=== PATIENT | female | born 1960 | race Caucasian/White ===

== ENCOUNTER 2019-08-17 15:44 | Emergency (ER) | payer MEDICARE, MEDICAID ==
[~2019-08-17] VITALS: Ht 170.2 cm; Wt 109.8 kg
[~2019-08-17 15:44] MED LIST: ATOR10TA87 PO; BRIV50TA PO; COR3.125T PO; ESOM40CA PO; FENO48TA15 PO; HYDR-4353 PO; HYDR-4383 PO; LACO100T2 PO; LAMO100T2 PO; LEVE750T PO; LOSA25TA96 PO; NITR0.4T51 SL; TIZA4CAP6 PO; TOP100T PO
[2019-08-17 15:47] VITALS: BP 140/80
[2019-08-17 16:47] LABS: BASOPHILS # (AUTO) 0.1 X10'3 (0-0.2); BASOPHILS % (AUTO) 0.8 % (0-1); EOSINOPHILS # (AUTO) 0.2 X10'3 (0-0.9); EOSINOPHILS % (AUTO) 2.5 % (0-6); HEMATOCRIT 41.4 % (35.0-45.0); HEMOGLOBIN 14.2 g/dl (12.0-16.0); LYMPHOCYTES # (AUTO) 2.6 X10'3 (1.1-4.8); LYMPHOCYTES % (AUTO) 35.5 % (21-51); MEAN CORPUSCULAR HGB CONC 34.3 g/dL (33.0-36.5); MEAN CORPUSCULAR VOLUME 90.1 FL (78-98); MEAN PLATELET VOLUME 7.3 FL (7.4-10.4); MONOCYTES # (AUTO) 0.7 X10'3 (0-0.9); MONOCYTES % (AUTO) 8.8 % (2-12); NEUTROPHILS # (AUTO) 3.9 X10'3 (1.8-7.7); NEUTROPHILS % (AUTO) 52.4 % (42-75); PLATELET COUNT 236 X10'3 (140-440); RED BLOOD COUNT 4.59 X10'6 (4.20-5.60); RED CELL DISTRIBUTION WIDTH 12.7 % (11.5-14.5); WHITE BLOOD COUNT 7.4 X10'3 (4.5-11.0)
[2019-08-17 17:01] LABS: ALANINE AMINOTRANSFERASE 55 U/L (12-78); ALBUMIN 3.6 G/DL (3.4-5.0); ALBUMIN/GLOBULIN RATIO 0.9 (1.1-1.5); ALKALINE PHOSPHATASE 142 IU/L (46-116); ANION GAP 6 (8-16); ASPARTATE AMINO TRANSFERASE 43 U/L (10-37); BILIRUBIN,TOTAL 0.4 MG/DL (0.1-1.0); BLOOD UREA NITROGEN 16 MG/DL (7-18); CALCIUM 9.2 MG/DL (8.5-10.1); CHLORIDE 109 MMOL/L (99-107); CREATININE 1.07 MG/DL (0.40-0.90); GLUCOSE 123 MG/DL (70-104); SODIUM 141 MMOL/L (135-145); TOTAL CARBON DIOXIDE 26.3 MMOL/L (24-32); TOTAL PROTEIN 7.8 G/DL (6.4-8.2); eGFR 53 ML/MIN
[2019-08-17] MEDS ORDERED: iohexol 300mg/ml 100ml inj. ONE (17:23)
[2019-08-17] MEDS ORDERED: dexamethasone sod phosphate 10mg/ml inj PO STA (18:50)
== END 2019-08-17 19:03 | disposition home or self-care (01) ==
LOC: ER 15:44
DX: R13.10 Dysphagia, unspecified (principal); R47.02 Dysphasia; R06.02 Shortness of breath; G43.909 Migraine, unspecified, not intractable, without status migrainosus; E78.00 Pure hypercholesterolemia, unspecified; Z90.710 Acquired absence of both cervix and uterus; Z98.890 Other specified postprocedural states; Z86.69 Personal history of other diseases of the nervous system and sense organs; Z88.5 Allergy status to narcotic agent; Z88.8 Allergy status to other drugs, medicaments and biological substances; Z79.899 Other long term (current) drug therapy
CPT/HCPCS: 36415; 70491; 80053; 85025; 99284; J1100; Q9967

== ENCOUNTER 2020-05-17 11:06 | Emergency (ER) | payer MEDICARE, MEDICAID ==
[~2020-05-17] VITALS: Ht 170.2 cm; Wt 110.0 kg
[~2020-05-17 11:06] MED LIST changes: +ANAS1TAB24 PO; -BRIV50TA PO; -HYDR-4353 PO; -HYDR-4383 PO; +ICOS1CAP PO; -TIZA4CAP6 PO
[2020-05-17] MEDS ORDERED: naloxone 0.4 mg/ml inj IV ONE (11:45)
[2020-05-17 11:50] LABS: BASOPHILS # (AUTO) 0.1 X10'3 (0-0.2); BASOPHILS % (AUTO) 0.4 % (0-1); EOSINOPHILS # (AUTO) 0.2 X10'3 (0-0.9); EOSINOPHILS % (AUTO) 1.3 % (0-6); HEMATOCRIT 35.6 % (35.0-45.0); HEMOGLOBIN 11.8 g/dl (12.0-16.0); LYMPHOCYTES # (AUTO) 2.1 X10'3 (1.1-4.8); LYMPHOCYTES % (AUTO) 17.7 % (21-51); MEAN CORPUSCULAR HEMOGLOBIN 30.7 PG (27.0-31.0); MEAN CORPUSCULAR HGB CONC 33.2 g/dL (33.0-36.5); MEAN CORPUSCULAR VOLUME 92.6 FL (78-98); MONOCYTES # (AUTO) 1.1 X10'3 (0-0.9); MONOCYTES % (AUTO) 9.7 % (2-12); NEUTROPHILS # (AUTO) 8.2 X10'3 (1.8-7.7); NEUTROPHILS % (AUTO) 70.9 % (42-75); PLATELET COUNT 171 X10'3 (140-440); RED BLOOD COUNT 3.84 X10'6 (4.20-5.60); RED CELL DISTRIBUTION WIDTH 12.6 % (11.5-14.5); WHITE BLOOD COUNT 11.6 X10'3 (4.5-11.0)
[2020-05-17] MEDS ORDERED: ondansetron/PF 4mg/2ml inj IV ONE (11:50)
[2020-05-17] MEDS ORDERED: normal saline 1000ml 1,000 ML IV ONE (11:50)
[2020-05-17 12:00] LABS: ALANINE AMINOTRANSFERASE 39 U/L (12-78); ALBUMIN 2.9 G/DL (3.4-5.0); ALBUMIN/GLOBULIN RATIO 0.6 (1.1-1.5); ALKALINE PHOSPHATASE 89 IU/L (46-116); ANION GAP 10 (8-16); ASPARTATE AMINO TRANSFERASE 31 U/L (10-37); BILIRUBIN,TOTAL 0.9 MG/DL (0.1-1.0); BLOOD UREA NITROGEN 28 MG/DL (7-18); BUN/CREATININE RATIO 16.6 (6.6-38.0); CALCIUM 8.6 MG/DL (8.5-10.1); CHLORIDE 103 MMOL/L (99-107); CREATININE 1.69 MG/DL (0.40-0.90); GLUCOSE 194 MG/DL (70-104); POTASSIUM 3.8 MMOL/L (3.5-5.1); SODIUM 134 MMOL/L (135-145); TOTAL PROTEIN 7.5 G/DL (6.4-8.2); eGFR 31 ML/MIN
[2020-05-17 12:13] LABS: CLARITY,URINE CLOUDY (Clear); COLOR,URINE ORANGE (Yellow)
[2020-05-17 12:15] LABS: UA COLLECTION TYPE STRAIGHT CATH
[2020-05-17 12:18] LABS: URINE AMPHETAMINE SCREEN NEGATIVE (Neg); URINE BARBITUATE SCREEN NEGATIVE (Neg); URINE BENZODIAZEPINES SCREEN NEGATIVE (Neg); URINE CANNABINOID SCREEN NEGATIVE (Neg); URINE COCAINE SCREEN NEGATIVE (Neg); URINE METHADONE SCREEN NEGATIVE (Neg); URINE OPIATE SCREEN NEGATIVE (Neg); URINE PHENCYCLIDINE SCREEN NEGATIVE (Neg)
[2020-05-17 12:21] LABS: COARSE GRANULAR CAST 0-3 /LPF (NEGATIVE); HYALINE CASTS 0-3 /LPF (NEGATIVE); MUCUS STRANDS MODERATE /LPF (Neg); SQUAMOUS EPITHELIAL CELL,UR MODERATE /LPF (FEW); TRANSITIONAL EPI CELLS,URINE FEW /HPF
[2020-05-17 12:23] LABS: BACTERIA,URINE FEW /HPF (Neg)
[2020-05-17 15:40] VITALS: BP 115/58
--- NOTE | 2020-05-17 16:07 | NUR ---
Pt's son contacted, Sanjiv via pt's cell number ([phone]). He will try calling his sister Miladis, who was already called by this RN with no answer, and work out transportation. Once done, he will call ed with details. Primary rn Jill informed.
== END 2020-05-17 17:10 | disposition home or self-care (01) ==
LOC: ER 11:06
DX: R53.83 Other fatigue (principal); R41.82 Altered mental status, unspecified; R42 Dizziness and giddiness; R04.0 Epistaxis; G43.909 Migraine, unspecified, not intractable, without status migrainosus; E78.00 Pure hypercholesterolemia, unspecified; J45.909 Unspecified asthma, uncomplicated; K27.9 Peptic ulcer, site unspecified, unspecified as acute or chronic, without hemorrhage or perforation; I49.9 Cardiac arrhythmia, unspecified; Z88.6 Allergy status to analgesic agent; Z88.5 Allergy status to narcotic agent; Z88.8 Allergy status to other drugs, medicaments and biological substances; Z79.899 Other long term (current) drug therapy; Z98.890 Other specified postprocedural states
CPT/HCPCS: 36415; 70450; 71045; 71250; 72125; 80053; 80305; 81001; 82140; 85025; 85610; 96374; 96375; 99285; J2310; J2405; J7030

== ENCOUNTER 2021-01-03 09:44 | Emergency (ER) | payer MEDICARE, MEDICAID ==
[~2021-01-03] VITALS: Ht 162.6 cm; Wt 105.5 kg
[2021-01-03 10:20] VITALS: BP 120/70
--- NOTE | 2021-01-03 11:16 | NUR ---
ER REG STATES THEY SAW PATIENT LEAVE WITH VISITOR IN CAR.
--- NOTE | 2021-01-03 16:29 | NUR ---
Patient not in lobby for the 4th time, Dr. Gleason aware of LWOBS
--- NOTE | 2021-01-03 16:33 | NUR ---
attempted to call patient with no answer
--- NOTE | 2021-01-03 17:22 | NUR ---
Patient called back regarding LWOBS, Patient stated, "I went home ate something, took my meds, and fell asleep." Patient stated, "my daughter and I didn't feel like it must have been very important if I went to the lobby." I explained to her that it doesn't mean we didn't feel as though she didn't need to be seen. we just didn't have a ER room for her to go to at the time. Patient stated that she was feeling better. And she is aware that if anything changes she can return.
== END 2021-01-03 16:33 | disposition left against medical advice (07) ==
LOC: ER 09:45
DX: T78.40XA Allergy, unspecified, initial encounter (principal); Z53.21 Procedure and treatment not carried out due to patient leaving prior to being seen by health care provider; Y92.89 Other specified places as the place of occurrence of the external cause

== ENCOUNTER 2021-06-01 15:42 | Emergency (ER) | payer MEDICARE, MEDICAID ==
[~2021-06-01] VITALS: Ht 162.6 cm; Wt 102.0 kg
[2021-06-01] MEDS ORDERED: acetaminophen 325mg tablet PO ONE (16:00)
[2021-06-01] MEDS ORDERED: HYDROcodone/acetaminophen 5mg/325mg tablet PO ONE (16:25)
[2021-06-01] MEDS ORDERED: HYDR-3965 PO (16:28)
[2021-06-01 17:14] VITALS: BP 115/73
== END 2021-06-01 16:36 | disposition home or self-care (01) ==
LOC: ER 15:43
DX: S22.32XA Fracture of one rib, left side, initial encounter for closed fracture (principal); G40.909 Epilepsy, unspecified, not intractable, without status epilepticus; G43.909 Migraine, unspecified, not intractable, without status migrainosus; E78.00 Pure hypercholesterolemia, unspecified; J45.909 Unspecified asthma, uncomplicated; Z85.3 Personal history of malignant neoplasm of breast; Z90.710 Acquired absence of both cervix and uterus; Z79.82 Long term (current) use of aspirin; Z79.899 Other long term (current) drug therapy; Z88.8 Allergy status to other drugs, medicaments and biological substances; Z88.6 Allergy status to analgesic agent; X58.XXXA Exposure to other specified factors, initial encounter; Y93.89 Activity, other specified; Y92.89 Other specified places as the place of occurrence of the external cause; Y99.8 Other external cause status
CPT/HCPCS: 71045; 99283

== ENCOUNTER 2021-12-06 18:27 | Emergency (ER) | payer BC, MEDICAID ==
[~2021-12-06] VITALS: Ht 162.6 cm; Wt 102.8 kg
[2021-12-06] MEDS ORDERED: acetaminophen 325mg tablet PO ONE (20:00)
[2021-12-06] MEDS ORDERED: normal saline 500ml IV soln 500 ML IV SCH (20:00)
[2021-12-06] MEDS ORDERED: levetiracetam inj 500 MG in normal saline 100ml IV soln 95 ML IV SCH (20:00)
[2021-12-06] MEDS ORDERED: LEVE10002 PO (20:52)
[2021-12-06] MEDS ORDERED: levetiracetam inj 500 MG in normal saline 100ml IV soln 100 ML IV SCH (21:19)
[2021-12-06 21:37] VITALS: BP 129/71
== END 2021-12-06 21:42 | disposition home or self-care (01) ==
LOC: EDBD 18:28 → MERGE 18:28 → ER 18:28
DX: R56.9 Unspecified convulsions (principal); Z86.69 Personal history of other diseases of the nervous system and sense organs; Z88.5 Allergy status to narcotic agent; Z88.8 Allergy status to other drugs, medicaments and biological substances; Z79.899 Other long term (current) drug therapy
CPT/HCPCS: 71045; 93005; 96365; 99284; J1953; J3490; J7040

== ENCOUNTER 2022-04-21 15:07 | Emergency (ER) | payer BC, MEDICAID ==
[~2022-04-21] VITALS: Ht 162.6 cm; Wt 100.0 kg
[~2022-04-21 15:07] MED LIST changes: +LEVE10002 PO
[2022-04-21 16:05] LABS: BASOPHILS % (AUTO) 0.4 % (0-1); EOSINOPHILS # (AUTO) 0.2 X10'3 (0-0.9); EOSINOPHILS % (AUTO) 2.1 % (0-6); HEMATOCRIT 41.8 % (35.0-45.0); LYMPHOCYTES % (AUTO) 34.1 % (21-51); MEAN CORPUSCULAR HEMOGLOBIN 30.3 PG (27.0-31.0); MEAN CORPUSCULAR HGB CONC 33.6 g/dL (33.0-36.5); MEAN CORPUSCULAR VOLUME 90.2 FL (78-98); MEAN PLATELET VOLUME 7.9 FL (7.4-10.4); MONOCYTES # (AUTO) 0.9 X10'3 (0-0.9); MONOCYTES % (AUTO) 10.2 % (2-12); NEUTROPHILS # (AUTO) 4.8 X10'3 (1.8-7.7); NEUTROPHILS % (AUTO) 53.2 % (42-75); PLATELET COUNT 187 X10'3 (140-440); RED BLOOD COUNT 4.63 X10'6 (4.20-5.60)
[2022-04-21 16:20] LABS: ALANINE AMINOTRANSFERASE 41 U/L (12-78); ALBUMIN 3.2 G/DL (3.4-5.0); ALBUMIN/GLOBULIN RATIO 0.8 (1.1-1.5); ALKALINE PHOSPHATASE 80 IU/L (46-116); ASPARTATE AMINO TRANSFERASE 33 U/L (10-37); BILIRUBIN,TOTAL 0.5 MG/DL (0.1-1.0); BLOOD UREA NITROGEN 17 MG/DL (7-18); BUN/CREATININE RATIO 13.6 (6.6-38.0); CALCIUM 9.3 MG/DL (8.5-10.1); CHLORIDE 109 MMOL/L (99-107); CREATININE 1.25 MG/DL (0.40-0.90); GLUCOSE 96 MG/DL (70-104); MAGNESIUM 1.9 MG/DL (1.5-2.4); TOTAL CARBON DIOXIDE 25.3 MMOL/L (24-32); TOTAL PROTEIN 7.2 G/DL (6.4-8.2); eGFR 44 ML/MIN
[2022-04-21 16:31] LABS: ANION GAP 6 (8-16); POTASSIUM 3.8 MMOL/L (3.5-5.1); SODIUM 140 MMOL/L (135-145)
[2022-04-21 19:41] VITALS: BP 105/63
== END 2022-04-21 19:57 | disposition home or self-care (01) ==
LOC: ER 15:08
DX: G40.909 Epilepsy, unspecified, not intractable, without status epilepticus (principal); G43.909 Migraine, unspecified, not intractable, without status migrainosus; E78.00 Pure hypercholesterolemia, unspecified; I10 Essential (primary) hypertension; J45.909 Unspecified asthma, uncomplicated; G89.29 Other chronic pain; Z86.69 Personal history of other diseases of the nervous system and sense organs; Z87.11 Personal history of peptic ulcer disease; Z85.3 Personal history of malignant neoplasm of breast; Z90.710 Acquired absence of both cervix and uterus; Z98.890 Other specified postprocedural states; Z88.5 Allergy status to narcotic agent; Z88.8 Allergy status to other drugs, medicaments and biological substances; Z79.899 Other long term (current) drug therapy
CPT/HCPCS: 36415; 71045; 80053; 82948; 83735; 85025; 93005; 99285

== ENCOUNTER 2022-11-04 23:40 | Emergency (ER) | payer BC, MEDICAID ==
[~2022-11-04] VITALS: Ht 162.6 cm; Wt 100.9 kg
[2022-11-04] MEDS ORDERED: ondansetron/PF 4mg/2ml inj IV ONE (23:50)
[2022-11-04] MEDS ORDERED: acetaminophen 1,000mg/100ml IV 100 ML IV ONE (23:50)
[2022-11-04] MEDS ORDERED: normal saline 1000ML IV soln IVB ONE (23:50)
[2022-11-05] MEDS ORDERED: SEMA0.25 SQ (00:17)
[2022-11-05 00:40] LABS: ALANINE AMINOTRANSFERASE 41 U/L (12-78); ALBUMIN 3.3 G/DL (3.4-5.0); ALBUMIN/GLOBULIN RATIO 0.8 (1.1-1.5); ALKALINE PHOSPHATASE 87 IU/L (46-116); ANION GAP 9 (8-16); ASPARTATE AMINO TRANSFERASE 28 U/L (10-37); BILIRUBIN,TOTAL 0.4 MG/DL (0.1-1.0); BLOOD UREA NITROGEN 27 MG/DL (7-18); BUN/CREATININE RATIO 21.8 (10.0-20.0); CALCIUM 8.9 MG/DL (8.5-10.1); CHLORIDE 106 MMOL/L (99-107); CREATININE 1.24 MG/DL (0.40-0.90); GLUCOSE 151 MG/DL (70-104); LIPASE 462 U/L (73-393); POTASSIUM 3.9 MMOL/L (3.5-5.1); SODIUM 139 MMOL/L (135-145); TOTAL CARBON DIOXIDE 23.6 MMOL/L (24-32); TOTAL PROTEIN 7.6 G/DL (6.4-8.2); eGFR 44 ML/MIN
[2022-11-05] MEDS ORDERED: D3 PO (01:21)
[2022-11-05] MEDS ORDERED: OSC500T PO (01:21)
[2022-11-05] MEDS ORDERED: DENO60DI SUBCUT (01:21)
[2022-11-05] MEDS ORDERED: OMEG-5 PO (01:21)
[2022-11-05] MEDS ORDERED: LANTUS SQ (01:21)
[2022-11-05 01:27] VITALS: BP 119/65
[2022-11-05 01:27] LABS: BASOPHILS % (AUTO) 0.5 % (0-1); EOSINOPHILS # (AUTO) 0.3 X10'3 (0-0.9); EOSINOPHILS % (AUTO) 3.2 % (0-6); HEMATOCRIT 42.4 % (35.0-45.0); HEMOGLOBIN 14.4 g/dl (12.0-16.0); LYMPHOCYTES # (AUTO) 3.4 X10'3 (1.1-4.8); LYMPHOCYTES % (AUTO) 40.2 % (21-51); MEAN CORPUSCULAR HEMOGLOBIN 30.5 PG (27.0-31.0); MEAN CORPUSCULAR VOLUME 89.6 FL (78-98); MEAN PLATELET VOLUME 9.3 FL (7.4-10.4); MONOCYTES # (AUTO) 0.6 X10'3 (0-0.9); MONOCYTES % (AUTO) 7.2 % (2-12); NEUTROPHILS # (AUTO) 4.2 X10'3 (1.8-7.7); NEUTROPHILS % (AUTO) 48.9 % (42-75); PLATELET COUNT 208 X10'3 (140-440); RED BLOOD COUNT 4.74 X10'6 (4.20-5.60); RED CELL DISTRIBUTION WIDTH 13.5 % (11.5-14.5); WHITE BLOOD COUNT 8.5 X10'3 (4.5-11.0)
== END 2022-11-05 02:12 | disposition home or self-care (01) ==
LOC: ER 23:41
DX: R10.84 Generalized abdominal pain (principal); G43.909 Migraine, unspecified, not intractable, without status migrainosus; E78.00 Pure hypercholesterolemia, unspecified; I10 Essential (primary) hypertension; J45.909 Unspecified asthma, uncomplicated; G89.29 Other chronic pain; Z90.710 Acquired absence of both cervix and uterus; Z98.890 Other specified postprocedural states; Z88.6 Allergy status to analgesic agent; Z88.5 Allergy status to narcotic agent; Z88.8 Allergy status to other drugs, medicaments and biological substances; Z79.4 Long term (current) use of insulin; Z79.899 Other long term (current) drug therapy
CPT/HCPCS: 36415; 70450; 80053; 83690; 84484; 85025; 93005; 96374; 96375; 99285; J0131; J2405; J7030

== ENCOUNTER 2023-02-17 21:46 | Emergency (ER) | payer BC, MEDICAID ==
[~2023-02-17] VITALS: Ht 162.6 cm; Wt 100.9 kg
[~2023-02-17 21:46] MED LIST changes: -ANAS1TAB24 PO; +D3 PO; +DENO60DI SUBCUT; -LACO100T2 PO; -LAMO100T2 PO; +LANTUS SQ; -LEVE10002 PO; -LEVE750T PO; +OMEG-5 PO; +OSC500T PO; +SEMA0.25 SQ
[2023-02-17 22:58] LABS: MEAN CORPUSCULAR VOLUME 88.3 FL (78-98)
[2023-02-17 22:59] LABS: BASOPHILS # (AUTO) 0.1 X10'3 (0-0.2); BASOPHILS % (AUTO) 0.5 % (0-1); EOSINOPHILS % (AUTO) 0.3 % (0-6); HEMATOCRIT 39.7 % (35.0-45.0); HEMOGLOBIN 13.6 g/dl (12.0-16.0); MEAN CORPUSCULAR HEMOGLOBIN 30.3 PG (27.0-31.0); MEAN CORPUSCULAR HGB CONC 34.3 g/dL (33.0-36.5); MEAN PLATELET VOLUME 7.9 FL (7.4-10.4); MONOCYTES # (AUTO) 1.1 X10'3 (0-0.9); MONOCYTES % (AUTO) 7.3 % (2-12); NEUTROPHILS # (AUTO) 10.7 X10'3 (1.8-7.7); NEUTROPHILS % (AUTO) 71.9 % (42-75); PLATELET COUNT 195 X10'3 (140-440); RED CELL DISTRIBUTION WIDTH 12.9 % (11.5-14.5); WHITE BLOOD COUNT 14.9 X10'3 (4.5-11.0)
[2023-02-17 23:07] LABS: ALANINE AMINOTRANSFERASE 39 U/L (12-78); ALBUMIN 3.1 G/DL (3.4-5.0); ALBUMIN/GLOBULIN RATIO 0.8 (1.1-1.5); ALKALINE PHOSPHATASE 72 IU/L (46-116); ANION GAP 11 (8-16); ASPARTATE AMINO TRANSFERASE 31 U/L (10-37); BILIRUBIN,TOTAL 0.8 MG/DL (0.1-1.0); BLOOD UREA NITROGEN 21 MG/DL (7-18); BUN/CREATININE RATIO 17.9 (10.0-20.0); CALCIUM 8.6 MG/DL (8.5-10.1); CHLORIDE 106 MMOL/L (99-107); CREATININE 1.17 MG/DL (0.40-0.90); GLUCOSE 108 MG/DL (70-104); POTASSIUM 3.7 MMOL/L (3.5-5.1); SODIUM 139 MMOL/L (135-145); TOTAL CARBON DIOXIDE 22.2 MMOL/L (24-32); TOTAL PROTEIN 6.9 G/DL (6.4-8.2); eGFR 47 ML/MIN
[2023-02-18 00:43] VITALS: TEMP 99
[2023-02-18] MEDS ORDERED: DOCU-171 PO (02:13)
[2023-02-18] MEDS ORDERED: bisacodyl 5mg tablet.DR PO ONE (02:15)
[2023-02-18 03:08] VITALS: BP 128/67; PULSE 77; RESP 16; O2SAT 99
== END 2023-02-18 03:11 | disposition home or self-care (01) ==
LOC: ER 21:46
DX: R07.89 Other chest pain (principal); K59.00 Constipation, unspecified; G43.909 Migraine, unspecified, not intractable, without status migrainosus; E78.00 Pure hypercholesterolemia, unspecified; I10 Essential (primary) hypertension; J45.909 Unspecified asthma, uncomplicated; Z88.8 Allergy status to other drugs, medicaments and biological substances; Z88.5 Allergy status to narcotic agent; Z88.6 Allergy status to analgesic agent; Z79.899 Other long term (current) drug therapy; Z79.84 Long term (current) use of oral hypoglycemic drugs; Z90.710 Acquired absence of both cervix and uterus
CPT/HCPCS: 36415; 71045; 80053; 83880; 84484; 85025; 93005; 99285

== ENCOUNTER 2023-12-16 08:11 | Emergency (ER) | payer BC, MEDICAID ==
[~2023-12-16] VITALS: Ht 162.6 cm; Wt 104.0 kg
[~2023-12-16 08:11] MED LIST changes: +DOCU-171 PO; +LOSA-415 PO; -LOSA25TA96 PO
[2023-12-16 08:24] VITALS: BP 142/64; PULSE 83; RESP 16; TEMP 97.3; O2SAT 98
== END 2023-12-16 13:18 | disposition left against medical advice (07) ==
LOC: ER 08:12
DX: M79.671 Pain in right foot (principal); Z53.21 Procedure and treatment not carried out due to patient leaving prior to being seen by health care provider

== ENCOUNTER 2024-09-13 14:43 | Inpatient (IN) | payer BC, MEDICAID ==
[~2024-09-13] VITALS: Ht 162.6 cm; Wt 106.4 kg
[2024-09-13 16:06] LABS: BASOPHILS # (AUTO) 0.1 X10'3 (0-0.2); BASOPHILS % (AUTO) 0.8 % (0-1); EOSINOPHILS # (AUTO) 0.2 X10'3 (0-0.9); EOSINOPHILS % (AUTO) 2.2 % (0-6); HEMATOCRIT 48.5 % (35.0-45.0); HEMOGLOBIN 16.4 g/dl (12.0-16.0); LYMPHOCYTES # (AUTO) 3.4 X10'3 (1.1-4.8); LYMPHOCYTES % (AUTO) 34.6 % (21-51); MEAN CORPUSCULAR HEMOGLOBIN 29.9 PG (27.0-31.0); MEAN CORPUSCULAR HGB CONC 33.9 g/dL (33.0-36.5); MEAN CORPUSCULAR VOLUME 88.4 FL (78-98); MEAN PLATELET VOLUME 8.4 FL (7.4-10.4); NEUTROPHILS # (AUTO) 5.1 X10'3 (1.8-7.7); NEUTROPHILS % (AUTO) 52.4 % (42-75); PLATELET COUNT 200 X10'3 (140-440); RED BLOOD COUNT 5.49 X10'6 (4.20-5.60); WHITE BLOOD COUNT 9.7 X10'3 (4.5-11.0)
[2024-09-13 16:22] LABS: ALANINE AMINOTRANSFERASE 36 U/L (12-78); ALBUMIN 3.3 G/DL (3.4-5.0); ALBUMIN/GLOBULIN RATIO 0.8 (1.1-1.5); ALKALINE PHOSPHATASE 80 IU/L (46-116); ANION GAP 5 (8-16); ASPARTATE AMINO TRANSFERASE 25 U/L (10-37); BILIRUBIN,TOTAL 0.6 MG/DL (0.1-1.0); BLOOD UREA NITROGEN 38 MG/DL (7-18); BUN/CREATININE RATIO 28.8 (10.0-20.0); CALCIUM 8.9 MG/DL (8.5-10.1); CHLORIDE 108 MMOL/L (99-107); CREATININE 1.32 MG/DL (0.40-0.90); POTASSIUM 4.5 MMOL/L (3.5-5.1); SODIUM 140 MMOL/L (135-145); TOTAL CARBON DIOXIDE 27.1 MMOL/L (24-32); TOTAL PROTEIN 7.4 G/DL (6.4-8.2); eCRCL 38 ML/MIN; eGFR 41 ML/MIN
[2024-09-13 16:28] LABS: PRO BRAIN NATRIURETIC PEPTIDE < 30 PG/ML (0-125)
[2024-09-13 16:30] LABS: GLUCOSE 90 MG/DL (70-104)
[2024-09-13] MEDS ORDERED: ondansetron/PF 4mg/2ml inj IV PRN (20:05)
[2024-09-13] MEDS ORDERED: acetaminophen 325mg tablet PO PRN ×2 (20:05)
[2024-09-13] MEDS ORDERED: ipratropium/albuterol 3ml nebule NEB PRN (20:05)
[2024-09-13] MEDS ORDERED: magnesium hydroxide 30ml (MOM) UD suspension PO PRN ×2 (20:05→20:15)
[2024-09-13] MEDS: ondansetron/PF 4mg/2ml inj IV ONE (20:09)
[2024-09-13] MEDS: morphine 4 MG/ML inj SYRINge IV ONE (20:09)
[2024-09-13] MEDS ORDERED: potassium Cl 40MEQ/1/2NS 520ml 520 ML IV PRN (20:15)
[2024-09-13] MEDS ORDERED: magnesium sulf-water 4G/100mL 100 ML IV PRN (20:15)
[2024-09-13] MEDS ORDERED: magnesium sulf-water 2g/50mL 50 ML IV PRN (20:15)
[2024-09-13] MEDS ORDERED: potassium Cl 20 mEq SR tablet PO PRN ×2 (20:15)
[2024-09-13] MEDS ORDERED: mag hydrox/Alum hydrox/simeth 30ml oral suspension PO PRN (20:15)
[2024-09-13] MEDS ORDERED: magnesium Cl slow-release 64mg tablet PO PRN (20:15)
[2024-09-13 20:37] LABS: THYROID STIMULATING HORMONE 3.73 ulU/ml (0.34-4.50)
[2024-09-13] MEDS: ketorolac trometh 15mg/ml vial 15 MG/ML ML IV ONE (20:58)
[2024-09-13] MEDS ORDERED: ALEN70TA81 PO (22:23)
[2024-09-13] MEDS ORDERED: TRAM50TA2 PO (22:25)
[2024-09-13 23:05] VITALS: BP 127/78; PULSE 76; RESP 12; TEMP 96.8; O2SAT 97
[2024-09-13] MEDS: losartan 50mg tablet PO SCH (23:20)
[2024-09-13] MEDS ORDERED: dextrose 50%-water 50ml dispensing syringe IV PRN ×2 (23:20)
[2024-09-13] MEDS ORDERED: DEXTROSE 15 GM of carb/4 tabs (each vial/BOTTLE has 4 tablets) PO PRN ×2 (23:20)
[2024-09-13] MEDS ORDERED: nitroGLYCERIN 0.4mg SUBLingual tab SL PRN (23:20)
[2024-09-13] MEDS ORDERED: glucagon, human recombinant 1mg kit SUBCUT PRN (23:20)
[2024-09-13 23:30] VITALS: RESP 12; O2SAT 97
[2024-09-14] MEDS ORDERED: ketorolac trometh 15mg/ml vial 15 MG/ML ML IV PRN
[2024-09-14] MEDS ORDERED: CARV6.2553 PO (00:30)
[2024-09-14] MEDS ORDERED: TOPI-95 PO (00:34)
[2024-09-14] MEDS ORDERED: LOSA25TA41 PO (00:34)
[2024-09-14] MEDS ORDERED: ATOR40TA72 PO (00:39)
[2024-09-14] MEDS ORDERED: EMPA25TA PO (00:39)
[2024-09-14] MEDS ORDERED: SEMA0.258 SQ (00:48)
[2024-09-14] MEDS ORDERED: CHOL100024 PO (00:55)
[2024-09-14] MEDS ORDERED: non-formulary drug (Alendronate Sodium 1 TAB) PO SCH (01:45)
[2024-09-14 02:17] VITALS: BP 125/63
[2024-09-14 03:50] VITALS: PULSE 72; RESP 14; O2SAT 92
[2024-09-14] MEDS ORDERED: ATOR20TA PO (05:12)
[2024-09-14 06:00] VITALS: BP 130/66; PULSE 67; RESP 14; TEMP 96.6; O2SAT 97
[2024-09-14 06:03] LABS: BASOPHILS # (AUTO) 0.1 X10'3 (0-0.2); BASOPHILS % (AUTO) 0.7 % (0-1); EOSINOPHILS # (AUTO) 0.2 X10'3 (0-0.9); EOSINOPHILS % (AUTO) 2.1 % (0-6); HEMATOCRIT 43.7 % (35.0-45.0); LYMPHOCYTES # (AUTO) 3.6 X10'3 (1.1-4.8); LYMPHOCYTES % (AUTO) 39.2 % (21-51); MEAN CORPUSCULAR HEMOGLOBIN 30.3 PG (27.0-31.0); MEAN CORPUSCULAR HGB CONC 34.4 g/dL (33.0-36.5); MEAN CORPUSCULAR VOLUME 88.3 FL (78-98); MEAN PLATELET VOLUME 8.5 FL (7.4-10.4); MONOCYTES # (AUTO) 0.8 X10'3 (0-0.9); NEUTROPHILS # (AUTO) 4.5 X10'3 (1.8-7.7); PLATELET COUNT 161 X10'3 (140-440); RED BLOOD COUNT 4.95 X10'6 (4.20-5.60); WHITE BLOOD COUNT 9.3 X10'3 (4.5-11.0)
[2024-09-14 06:37] LABS: ALANINE AMINOTRANSFERASE 31 U/L (12-78); ALBUMIN 2.8 G/DL (3.4-5.0); ALBUMIN/GLOBULIN RATIO 0.8 (1.1-1.5); ALKALINE PHOSPHATASE 72 IU/L (46-116); ANION GAP 9 (8-16); ASPARTATE AMINO TRANSFERASE 21 U/L (10-37); BILIRUBIN,TOTAL 0.5 MG/DL (0.1-1.0); BLOOD UREA NITROGEN 46 MG/DL (7-18); BUN/CREATININE RATIO 34.8 (10.0-20.0); CALCIUM 8.6 MG/DL (8.5-10.1); CHLORIDE 108 MMOL/L (99-107); CREATININE 1.32 MG/DL (0.40-0.90); GLUCOSE 116 MG/DL (70-104); POTASSIUM 3.9 MMOL/L (3.5-5.1); SODIUM 140 MMOL/L (135-145); TOTAL CARBON DIOXIDE 23.2 MMOL/L (24-32); TOTAL PROTEIN 6.5 G/DL (6.4-8.2); eCRCL 38 ML/MIN; eGFR 41 ML/MIN
[2024-09-14] MEDS: INSULIN LISPRO 100 UNIT/ML INSULN.PEN MULTI-DOSE SQ SCH ×2 (07:00→09:00)
[2024-09-14] MEDS: K and/or MAG REPLACEMENT MC SCH (07:18)
[2024-09-14] MEDS: docusate sod 100mg capsule PO SCH (08:00)
[2024-09-14 09:01] VITALS: BP_SYST 130; PULSE 67
[2024-09-14] MEDS: heparin, porcine 5000 units/ml vial SQ SCH (09:01)
[2024-09-14] MEDS: pantoprazole 40mg Tablet.DR PO SCH ×2 (09:01→09:03)
[2024-09-14] MEDS: atorvastatin 20mg tablet PO SCH (09:01)
[2024-09-14] MEDS: fenofibrate 48mg tablet PO SCH (09:02)
[2024-09-14] MEDS: carVEDilol 3.125mg tablet PO SCH (09:02)
[2024-09-14 09:13] VITALS: RESP 12; O2SAT 97
[2024-09-14] MEDS: topiramate 25mg tablet PO SCH (10:00)
[2024-09-14] MEDS: EMPAGLIFLOZIN 25 MG TABLET PO SCH (10:00)
[2024-09-14] MEDS: morphine 2 MG/ML inj. syringe IV PRN (13:37)
[2024-09-14 14:37] VITALS: RESP 16
[2024-09-14] MEDS ORDERED: insulin glargine (Lantus) pen - multi-dose SQ SCH (21:00)
[2024-09-14] MEDS ORDERED: atorvastatin 10mg tablet PO SCH (21:00)
== END 2024-09-14 16:15 | disposition home or self-care (01) | DRG 313 ==
LOC: ER 14:44 → ED HOLD 20:12 → ORTHO 4S 23:00
PROVIDERS: ADMIT Internal Medicine Pulmonary Disease; ATTEND Internal Medicine
DX: R07.89 Other chest pain (principal); N18.30 Chronic kidney disease, stage 3 unspecified; I12.9 Hypertensive chronic kidney disease with stage 1 through stage 4 chronic kidney disease, or unspecified chronic kidney disease; J45.909 Unspecified asthma, uncomplicated; I50.9 Heart failure, unspecified; I48.91 Unspecified atrial fibrillation; E78.00 Pure hypercholesterolemia, unspecified; G89.29 Other chronic pain; G43.909 Migraine, unspecified, not intractable, without status migrainosus; E11.42 Type 2 diabetes mellitus with diabetic polyneuropathy; I25.10 Atherosclerotic heart disease of native coronary artery without angina pectoris; Z79.899 Other long term (current) drug therapy; Z86.74 Personal history of sudden cardiac arrest; Z88.5 Allergy status to narcotic agent; Z88.8 Allergy status to other drugs, medicaments and biological substances; Z90.710 Acquired absence of both cervix and uterus; Z87.11 Personal history of peptic ulcer disease; Z85.3 Personal history of malignant neoplasm of breast; Z79.84 Long term (current) use of oral hypoglycemic drugs; Z86.73 Personal history of transient ischemic attack (TIA), and cerebral infarction without residual deficits; Z87.01 Personal history of pneumonia (recurrent); Z79.4 Long term (current) use of insulin
CPT/HCPCS: 36415; 71045; 71250; 80053; 82948; 83735; 83880; 84443; 84484; 85025; 85379; 87081; 93005; 93306; 94760; 96374; 96375; 99285; A6212; A6449; G0378; J1644; J1815; J1885; J2270; J2405

== ENCOUNTER 2025-01-26 15:51 | Emergency (ER) | payer BC, MEDICAID ==
[~2025-01-26] VITALS: Ht 162.6 cm; Wt 93.3 kg
[~2025-01-26 15:51] MED LIST changes: +ALEN70TA81 PO; -ATOR10TA87 PO; +ATOR20TA PO; +CARV6.2553 PO; +CHOL100024 PO; -COR3.125T PO; -D3 PO; -DENO60DI SUBCUT; -DOCU-171 PO; +EMPA25TA PO; -ICOS1CAP PO; -LOSA-415 PO; +LOSA25TA41 PO; -OMEG-5 PO; -OSC500T PO; -SEMA0.25 SQ; +SEMA0.258 SQ; -TOP100T PO; +TOPI-95 PO; +TRAM50TA2 PO
[2025-01-26 16:00] VITALS: BP 136/87; PULSE 84; TEMP 97.9; O2SAT 96
--- NOTE | 2025-01-26 16:50 | Physician Documentation ---
History of Present Illness ~ Chief Complaint: Knee Pain Stated Complaint: L KNEE PAIN Time Seen by MD: 16:31 Primary Medical Doctor: SHANTI ORTIZ 64-year-old female presents to the ED for complaint of left knee pain x4 days. She states she has weakness in her legs that has chronic in nature and she felt like her legs gave out and she injured her left knee since then the pain has not gotten any better. She says the pain has gotten worse. She says she can barely hold her weight because of the pain Patient denies any head strikes Day of Onset: Jan 26, 2025 Tetanus witin 5 years: No Medication Reconciliation Allergies: Coded Allergies: metformin (Unverified Allergy, Severe, 09/13/24) aspirin (Verified Allergy, Unknown, 09/13/24) codeine (Verified Allergy, Unknown, 09/13/24) gabapentin (Verified Allergy, Unknown, 01/26/25) silver (Unverified Allergy, Unknown, 09/13/24) Uncoded Allergies: SQUASH (Allergy, Intermediate, 08/19/10) Scheduled Alendronate Sodium (Alendronate Sodium), 1 TAB PO Q7D, (Reported) Atorvastatin Calcium* (Lipitor*), 1 TAB PO BID, (Reported) Carvedilol (Carvedilol), 1.5 TAB PO BID, (Reported) Cholecalciferol (Vitamin D3) (Vitamin D3), 1 CAP PO DAILY Empagliflozin (Jardiance), 1 TAB PO DAILY, (Reported) Esomeprazole Mag Trihydrate* (Nexium*), 40 MG PO DAILY, (Reported) Fenofibrate Nanocrystallized (TRICOR tablet), 1 TABLET PO DAILY, (Reported) Insulin Glargine,Hum.rec.anlog* (Lantus*), 3 UNITS SQ DAILY, (Reported) Losartan Potassium (Losartan Potassium), 25 MG PO BID, (Reported) Semaglutide (Ozempic), 0.25 UNITS SQ Q7D, (Reported) Topiramate (Topiramate), 1 TAB PO BID, (Reported) Scheduled PRN Nitroglycerin SL* (Nitrostat SL*), 1 TAB SL Q5MIN PRN for Chest pain Q5min PRNx3-call MD, (Reported) Tramadol HCl (Tramadol HCl), 1 TAB PO TID PRN PRN for pain, (Reported) Past Medical History Past Medical History: Migraine, Seizures, Arrhythmia, High Cholesterol, Hypertension, Asthma, Peptic Ulcer Disease, Renal Disease, Chronic Pain, Breast Cancer Past Surgical History: hysterectomy, orthopedic surgeries, other Alcohol Use: None Drug Use: none Lives with: Mother Lives In: Home Occupation: employed Review of Systems All Other Systems at this time: Reviewed and Negative ROS As stated above in the HPI, otherwise all systems are reviewed and negative. Physical Exam Vital Signs: Temperature: 97.9, Source: Temporal, Heart Rate: 84, Respiratory Rate: 16, BP: 136/87, Pulse Oximetry: 96, Weight: 93.350 Physical Exam General: Alert, no apparent distress. Extremities: Normal range of motion, no deformity. Left knee is very tender to touch, she was positive Lora's and Salty's drawer test, to tender specifically just medial and just lateral to the patella Neurologic: Oriented x4. Reflexes intact Psychiatric: Normal mood and affect. Skin: Normal color, warm and dry. No edema, no ecchymosis. Progress Results/Orders Results/Orders Orders - DEJA PURDY [employer] TENDER Ortho Orders (01/26/25 ) Vital Signs 01/26/25 01/26/25 16:00 17:00 Temp 97.9 Pulse 84 Resp 16 16 B/P (MAP) 136/87 Pulse Ox 96 Medical Decision Making Findings Patient presents with suspected internal knee derangement likely secondary to her recent fall already has tramadol at home that she takes for back pain which I recommend taking for her acute onset knee pain at this point I do not see any reason to pursue emergent MRI imaging however she would likely benefit from it in the outpatient setting. Not sure if he we will be able to participate in physical therapy at this time however I would also recommend that she obtain a referral for referral for increased mobility and function Did not appreciate any acute fractures in the patient's x-ray Knee Diff Dx:Considerations: Include: Abrasion, Arthritis, Contusion, DJD, Fracture-femur, Fracture-fibula, Fracture-patella, Fracture-tibia, Gout, Hematoma, Laceration, Meniscus injury, Neurovascular injury, Open fracture, Rheumatoid arthritis, Septic, Sprain, Sprain-MCL, Sprain-LCL, Sprain-ACL, Sprain-PCL, Other Departure Disposition: HOME / SELF CARE / HOMELESS Impression: Primary Impression: Knee pain Additional Impression: Fall Condition: Stable Discharge Instructions: Acute Knee Pain, Adult Referrals: NO PRIMARY CARE PROVIDER (PCP) Signature Scribe Signature: b Attestation: Scribed for Deja Purdy [employer] Rep[employer]r by Deja Gómez NP . 01/26/25 18:10 DEJA PURDY NP Jan 26, 2025 16:50
[2025-01-26 17:00] VITALS: RESP 16
--- NOTE | 2025-01-26 17:24 | RADIOLOGY REPORT ---
EXAM: DI KNEE, COMP 4 VW MIN CLINICAL HISTORY: KNEE PAIN COMPARISON: None TECHNIQUE: DI KNEE, COMP 4 VW MIN Findings/Impression: 4 views of the left knee. There is no evidence of an acute fracture, dislocation, blastic, or lytic lesions. No radiopaque foreign bodies. No joint effusion or superficial soft tissue abnormalities.
== END 2025-01-26 17:04 | disposition home or self-care (01) ==
LOC: ER 15:52
DX: M25.562 Pain in left knee (principal); G43.909 Migraine, unspecified, not intractable, without status migrainosus; I10 Essential (primary) hypertension; E78.00 Pure hypercholesterolemia, unspecified; J45.909 Unspecified asthma, uncomplicated; Z85.3 Personal history of malignant neoplasm of breast; Z90.710 Acquired absence of both cervix and uterus; Z88.5 Allergy status to narcotic agent; Z88.6 Allergy status to analgesic agent; Z88.8 Allergy status to other drugs, medicaments and biological substances; Z79.899 Other long term (current) drug therapy
CPT/HCPCS: 29505; 73564; 99283